=== PATIENT | male | born 1990 | race Caucasian/White ===

== ENCOUNTER → 2017-02-02 | Outpatient (CLI) | payer OTHER ==
--- NOTE | 2017-02-02 19:12 | RADRPT ---
Echocardiogram Report Patient Name: MORA MARTINEZ Gender: Male Date: 1990 Study Date: 02-Feb-2017 [employer] Body Repairman: Julio OCONNELL RDCS Location: OP Ref. Physician: LILLIAN HURTADO Quality: Good Procedures: Transthoracic echocardiogram with complete 2D, M-Mode, and doppler examination. Indications: Chest Pain. Palpitations. 2D/M Mode Doppler Measurement Value Normal Ranges Measurement Value Normal Ranges LVIDd 2D 4.2 3.5 - 5.6 cm DAISY Vmax 2.7 cm2 LVIDs 2D 2.8 2.1 - 4.1 cm AV Peak Ziggy 0.9 m/sec FS 2D 31.7 % AV Peak PG 3.0 mmHg LVPWd 2D 0.7 0.6 - 1.1 cm LVOT Peak Ziggy 0.8 m/sec IVSd 2D 0.7 0.6 - 1.1 cm LVOT Peak PG 2.0 mmHg IVS/LVPW 2D 1.0 MV E Peak Ziggy 0.7 m/sec AoR Diam 2D 3.0 2.0 - 3.7 cm MV A Peak Ziggy 0.4 m/sec LA/Ao 2D 1 0 - 1 MV E/A 1.8 EDV 2D 72.5 cm3 MV Decel Time 169 msec ESV 2D 23.1 cm3 MV E/A 1.8 LA Dimen 2D 2.5 2.3 - 4.0 cm TR Peak Ziggy 2.2 m/sec LVOT Diam 2.0 cm TR Peak PG 20.0 mmHg LVOT Area 3.1 cm2 RVSP 30.0 mmHg Findings Left Ventricle: Normal left ventricular systolic function. Normal left ventricular cavity size. Normal left ventricular wall thickness. Ejection fraction is visually estimated at 60 %. Tissue Doppler/Mitral Doppler indices are within normal limits. Right Ventricle: Normal right ventricular size. Normal right ventricular systolic function. Left Atrium: The left atrium is normal in size. Right Atrium: The right atrium is normal in size. Mitral Valve: Mild mitral valve regurgitation. Aortic Valve: Normal appearance of the aortic valve. No significant aortic stenosis or insufficiency. Tricuspid Valve: Normal appearance of the tricuspid valve. Estimated peak PA systolic pressure 30 mmHg. There is mild to moderate tricuspid regurgitation. Pulmonic Valve: Pulmonic valve not well visualized. Pericardium: Pleural effusion seen. Aorta: Normal aortic root. IVC: Normal size and normal respiratory collapse consistent with normal right atrial pressure. Conclusions 1.Normal left ventricular systolic function. Normal left ventricular cavity size. Normal left ventricular wall thickness. Ejection fraction is visually estimated at 60 %. Tissue Doppler/Mitral Doppler indices are within normal limits. 2.Mild mitral valve regurgitation. 3.Normal appearance of the aortic valve. No significant aortic stenosis or insufficiency. 4.Normal appearance of the tricuspid valve. Estimated peak PA systolic pressure 30 mmHg. There is mild to moderate tricuspid regurgitation. Electronically Signed By: Luis Felipe Abarca 02-Feb-2017 19:11:14 -0700 Patient Name: MORA MARTINEZ Study Date: 02-Feb-2017 [id number]
== END | disposition home or self-care (01) ==
LOC: EKG 13:17
PROVIDERS: ATTEND Internal Medicine
DX: R07.9 Chest pain, unspecified (principal); R00.2 Palpitations
CPT/HCPCS: 93306